=== PATIENT | female | born 1960 | race Caucasian/White ===

== ENCOUNTER 2017-08-15 10:02 | Emergency (ER) | payer OTHER ==
[~2017-08-15] VITALS: Ht 157.5 cm; Wt 85.7 kg
[~2017-08-15 10:02] MED LIST: ALPR-138 PO; LEVO.05 PO; OXYC-360 PO
[2017-08-15 10:25] VITALS: BP 134/83; PULSE 69; RESP 16; TEMP 98.7; O2SAT 99
[2017-08-15] MEDS ORDERED: LOVA10TA PO (10:45)
[2017-08-15] MEDS ORDERED: SYNT112T PO (10:45)
--- NOTE | 2017-08-15 11:10 | PD ---
HPI Chief Complaint: Foreign Body Time Seen by Provider: 11:07 Travel History International Travel<30 days: No Contact w/Intl Traveler<30days: No Traveled to known affect area: No History of Present Illness HPI Patient presents with concerns of a sensation of a mass in her esophagus. Symptom onset 3 days. Denies any fish or bony foods. Reports pain on swallowing. She is able to pass liquids and solids with some discomfort. Denies any shortness of breath. Denies any recent illness. Denies any reflux. Denies any history of endoscopy. PFSH Past Medical History Blood Disorders: No Depression: Yes Cancer: No Cardiovascular Problems: No High Cholesterol: Yes Diabetes: No Diminished Hearing: No Endocrine: No Glaucoma: No Genitourinary: No Hepatitis: No Hiatal Hernia: No Hypertension: No Immune Disorder: No Medical other: Yes (ARTHRITIS IN KNEES) Musculoskeletal: No Neurologic: No Reproductive: Yes (ENDOMETRIOSIS) Respiratory: No Thyroid Disease: Yes (HYPOTHYROID) Tetanus Vaccination: > 5 Years Influenza Vaccination: Yes ?: Not Past Surgical History Abdominal Surgery: Yes (APPENDECTOMY) AICD: No Appendectomy: Yes Arteriovenous Shunt: No Cardiac Surgery: No Ear Surgery: No Endocrine Surgery: No Eye Surgery: No Genitourinary Surgery: No Gynecologic Surgery: Yes (HYSTERECTOMY 2006) Hysterectomy: Yes Insulin Pump: No Joint Replacement: Yes (RIGHT KNEE) Oral Surgery: No Pacemaker: No Thoracic Surgery: No Other Surgery: Yes Social History Alcohol Use: Yes (OCC) Tobacco Use: Yes (1 PPD) Substance Use: No Allergies-Medications (Allergen,Severity, Reaction): Coded Allergies: No Known Allergies (Verified Adverse Reaction, Unknown, 08/15/17) Reported Meds & Prescriptions Reported Meds & Active Scripts Active Reported Lovastatin 10 Mg Tab 10 Mg PO DAILY Synthroid (Levothyroxine Sodium) 112 Mcg Tab 112 Mcg PO DAILY Review of Systems General / Constitutional: No: Fever Eyes: No: Visual changes HENT: Positive: Other (dysphagia), No: Headaches Cardiovascular: No: Chest Pain or Discomfort Respiratory: No: Shortness of Breath Gastrointestinal: No: Abdominal Pain Genitourinary: No: Dysuria Musculoskeletal: No: Pain Skin: No Rash Neurologic: No: Weakness Psychiatric: No: Depression Endocrine: No: Polydipsia Hematologic/Lymphatic: No: Easy Bruising Physical Exam Narrative GENERAL: Well-nourished, well-developed patient. SKIN: Focused skin assessment warm/dry. HEAD: Normocephalic. EYES: No scleral icterus. No injection or drainage. NECK: Supple, trachea midline. No JVD or lymphadenopathy. CARDIOVASCULAR: Regular rate and rhythm without murmurs, gallops, or rubs. RESPIRATORY: Breath sounds equal bilaterally. No accessory muscle use. GASTROINTESTINAL: Abdomen soft, non-tender, nondistended. MUSCULOSKELETAL: No cyanosis, or edema. BACK: Nontender without obvious deformity. No CVA tenderness. Data Data Last Documented VS Vital Signs Date Time Temp Pulse Resp B/P (MAP) Pulse Ox O2 Delivery O2 Flow Rate FiO2 08/15/17 12:30 63 16 116/62 (80) 98 Room Air 08/15/17 10:25 98.7 Orders Orders Chest, Single Ap (08/15/17 ) Nifedipine (Procardia) (08/15/17 11:45) MDM Medical Decision Making Medical Screen Exam Complete: Yes Emergency Medical Condition: Yes Differential Diagnosis Esophageal foreign body, esophageal inflammation, GERD, esophageal stricture Narrative Course Assessment and plan discussed with patient and partner at bedside. No change with Procardia. Last 72 hours Impressions Chest X-Ray 08/15/17 0000 Signed Impressions: Service Date/Time: Tuesday, August 15, 2017 11:27 - CONCLUSION: No acute disease. Duane Glass MD Patient without shortness of breath, observe taking liquid. Stable for discharge Diagnosis Primary Impression: Dysphagia Qualified Codes: R13.10 - Dysphagia, unspecified Patient Instructions: General Instructions Additional Instructions: Encouraged to start Zantac 150 mg by mouth twice a day. Pain medication as needed. Mandatory consult for gastroenterology submitted. Stay hydrated. Med/Other Pt SpecificInfo: Prescription(s) given Scripts Hydrocodone-Acetaminophen (Hydrocodone-Acetaminophen) 5-325 mg Tab 0.5-1 TAB PO Q4H Y for PAIN, #10 TAB 0 Refills Prov: Albert Lambert MD 08/15/17 Ranitidine (Zantac 150 Maximum Strength) 150 Mg Tab 150 MG PO BID for Dyspepsia, #30 TAB Prov: Albert Lambert MD 08/15/17 Disposition: 01 DISCHARGE HOME Condition: Good Albert Lambert MD Aug 15, 2017 11:10
[2017-08-15] MEDS ORDERED: NIFEdipine 10 MG CAP PO ONE (11:45)
[2017-08-15 11:54] VITALS: BP 109/57; PULSE 78; RESP 16; O2SAT 98
--- NOTE | 2017-08-15 12:28 | RADRPT ---
EXAM DATE/TIME: 08/15/2017 11:27 [facility] COMPARISON: No previous studies available for comparison. INDICATIONS : [place] MEDICAL HISTORY : None. SURGICAL HISTORY : None. ENCOUNTER: Initial ACUITY: 3 days PAIN SCORE: 6/10 LOCATION: Bilateral chest FINDINGS: A single view of the chest demonstrates the lungs to be symmetrically aerated without evidence of mas s, infiltrate or effusion. The cardiomediastinal contours are unremarkable. Osseous structures are intact. CONCLUSION: No acute disease. Duane Glass MD on August 15, 2017 at 12:26 Board Certified Radiologist. This report was verified electronically.
[2017-08-15 12:30] VITALS: BP 116/62; PULSE 63; RESP 16; O2SAT 98
[2017-08-15] MEDS ORDERED: ZANTTAB PO (12:42)
[2017-08-15] MEDS ORDERED: HYDR-3516 PO (12:42)
== END 2017-08-15 13:03 | disposition home or self-care (01) ==
LOC: PHED 10:02
DX: R13.10 Dysphagia, unspecified (principal); E03.9 Hypothyroidism, unspecified; E78.00 Pure hypercholesterolemia, unspecified; F32.9 Major depressive disorder, single episode, unspecified; F17.200 Nicotine dependence, unspecified, uncomplicated
CPT/HCPCS: 71045; 99283